=== PATIENT | male | born 1955 | race Caucasian/White ===

== ENCOUNTER → 2020-07-06 | Outpatient (CLI) | payer OTHER | END | disposition home or self-care (01) | LOC: RX STUDY 09:15 | PROVIDERS: ATTEND Internal Medicine Gastroenterology | DX: K44.9 Diaphragmatic hernia without obstruction or gangrene (principal); K21.9 Gastro-esophageal reflux disease without esophagitis; K22.2 Esophageal obstruction ==

== ENCOUNTER 2024-07-05 21:36 | Emergency (ER) | payer OTHER ==
[~2024-07-05] VITALS: Ht 165.1 cm; Wt 86.2 kg
[2024-07-05 21:51] VITALS: BP 125/78; O2SAT 95
[2024-07-05] MEDS ORDERED: MUCINEX COLD-F180 ML PO (21:52)
[2024-07-05] MEDS ORDERED: AMOX1TAB5 PO (21:52)
[2024-07-05] MEDS ORDERED: ACETAMINOPHEN 500 MG GEL..CAP PO ONE ×2 (22:00→22:09)
[2024-07-05] MEDS ORDERED: METHYLPREDNISOLONE SOD SUCC 125 MG VIAL ONE (22:27)
[2024-07-05] MEDS ORDERED: GUAIFENESIN/DEXTROMETHORPHAN 10ML BLIST.PACK PO ONE (22:27)
[2024-07-05] MEDS ORDERED: IPRATROPIUM BROMIDE 0.5 MG/2.5 ML AMPUL.NEB IH SCH (22:30)
[2024-07-05] MEDS ORDERED: LEVALBUTEROL HCL 1.25 MG/3 ML SOLUTION IH SCH (22:30)
[2024-07-05] MEDS ORDERED: BENZONATATE 100 MG CAPSULE PO ONE (22:30)
[2024-07-05] MEDS ORDERED: METHYLPREDNISOLONE SOD SUCC 125 MG VIAL IV SCH (22:30)
[2024-07-05] MEDS ORDERED: GUAIFENESIN 200 MG/10 ML BLIST.PACK PO ONE (22:30)
[2024-07-05 23:07] LABS: HEMATOCRIT 42.6 % (39.0-48.0); HEMOGLOBIN 14.6 g/dL (13-16.00); MEAN CELL VOLUME 90.7 fL (80.0-100.00); MEAN CORPUSCULAR HEMOGLOBIN 31.1 pg (27.00-32.0); MEAN CORPUSCULAR HGB CONC 34.3 g/dl (32.0-36.0); PLATELET COUNT 141 K/uL (150-450); RED CELL DISTRIBUTION WIDTH 14.3 % (11.5-14.5)
[2024-07-05] MEDS ORDERED: RACEPINEPHRINE HCL 0.5 ML AMPUL IH ONE (23:45)
[2024-07-06 06:03] LABS: ABG PH 7.441 (7.35-7.45); ABG PO2 73.4 mmHg (80-100); ABG pCO2 35.1 mmHg (35-45); BASE EXCESS -0.2 mmol/l; BICARBONATE 23.4 mmol/l (23-25); SaO2 95.2 %; Tco2 24.5 mmol/l
[2024-07-06 06:04] LABS: allen test SATISFACTORY; o2 21 %; puncture site RADIAL LEFT
== END 2024-07-06 00:57 | disposition home or self-care (01) ==
LOC: ER 21:36
PROVIDERS: General Practice
DX: J11.1 Influenza due to unidentified influenza virus with other respiratory manifestations (principal); R05.9 Cough, unspecified; Z20.822 Contact with and (suspected) exposure to COVID-19
CPT/HCPCS: 36415; 71046; 82803; 96365; 99283; J3490

== ENCOUNTER 2025-02-14 15:16 | Emergency (ER) | payer OTHER ==
[~2025-02-14] VITALS: Ht 167.6 cm; Wt 83.9 kg
[~2025-02-14 15:16] MED LIST: AMOX1TAB5 PO; MUCINEX COLD-F180 ML PO
[2025-02-14] MEDS ORDERED: VAZALORE81 MG PO (16:03)
[2025-02-14] MEDS ORDERED: LOSARTAN POTASS25 MG PO (16:03)
[2025-02-14] MEDS ORDERED: ATORVASTATIN CA40 MG PO (16:03)
[2025-02-14] MEDS ORDERED: ACETAMINOPHEN 500 MG GEL..CAP PO ONE ×2 (17:00→17:23)
[2025-02-14 17:15] LABS: BASO % 0.7 % (0.1-1.2); EOS # 0.09 (0.04-0.54); EOS % 1.2 % (0.7-7.0); LYMPH # 1.66 (1.18-3.74); LYMPH % 22.7 % (19.3-53.1); MEAN PLATELET VOLUME 10.00 fl (9.4-12.4); MONO # 0.75 (0.24-0.82); MONO % 10.3 % (4.7-12.5); NEUT # 4.73 (1.56-6.13); NEUT % 64.8 % (34.0-71.1); RED CELL DISTRIBUTION WIDTH 13.5 % (11.6-14.4)
[2025-02-14 17:40] LABS: COVID-19 AG NEGATIVE (NEGATIVE)
[2025-02-14 18:03] LABS: ALT/SGPT 29.0 U/L (12-78); AST/SGOT 25.0 U/L (15-37); BILIRUBIN TOTAL 0.63 mg/dL (0.3-1.2); BUN CREA RATIO 19.0 (7.0-25.0); CREATININE SERUM 1.13 mg/dL (0.70-1.30); GFR 64.15; GLOBULINA 3.1 G/DL (2.4-3.5); GLUCOSE FASTING 101.0 mg/dL (65-100); LDH 161.0 U/L (87-241); OSMOLALITY SERUM 281.0 MOSM/KG (275-295); PHOSPHOKINASE CREATININE 112.0 U/L (39-308)
== END 2025-02-14 19:39 | disposition home or self-care (01) ==
LOC: ER 15:16
PROVIDERS: Emergency Medicine
DX: R00.2 Palpitations (principal); I10 Essential (primary) hypertension; I25.10 Atherosclerotic heart disease of native coronary artery without angina pectoris; R07.89 Other chest pain